=== PATIENT | male | born 2000 | race Caucasian/White ===

== ENCOUNTER 2019-12-31 00:36 | Emergency (ER) | payer SELFPAY ==
[~2019-12-31] VITALS: Ht 182.9 cm; Wt 90.7 kg
[2019-12-31 00:42] VITALS: Ht 182.9 cm; Wt 90.7 kg
[2019-12-31 05:45] VITALS: BP 106/74
== END 2019-12-31 05:45 | disposition home or self-care (01) ==
LOC: ED 00:36
DX: F10.120 Alcohol abuse with intoxication, uncomplicated (principal)
CPT/HCPCS: J7030